=== PATIENT | female | born 1960 | race Caucasian/White ===

== ENCOUNTER 2020-10-25 11:28 | Outpatient (REF) | payer MEDICAID, SELFPAY ==
[2020-10-25 20:44] LABS: Hemoglobin A1C 5.5 % (<5.7)
[2020-10-25 20:47] LABS: ALT 34 U/L (14-59); AST 16 U/L (15-37); Albumin 3.8 g/dL (3.4-5.0); Alkaline Phosphatase 86 U/L (46-116); Anion Gap 8.5 mmol/L (3-11); BUN 13 mg/dL (7-18); Bilirubin, Total 1.2 mg/dL (0.2-1.0); CO2 30.5 mmol/L (21.0-32.0); CREATININE 0.7 mg/dL (0.55-1.02); Calcium 9.1 mg/dL (8.5-10.1); Calculated LDL 111 mg/dL (<100); Chloride 106 mmol/L (98-107); Cholesterol 187 mg/dL (<200); Glucose 88 mg/dL (74-106); HDL Cholesterol 54 mg/dL (40-60); Potassium 4.3 mmol/L (3.5-5.1); Sodium 145 mmol/L (136-145); Total Protein 6.6 g/dL (6.4-8.2); Triglyceride 110 mg/dL (<150)
== END 2020-10-25 11:29 | disposition home or self-care (01) ==
LOC: NCHCN 11:28
PROVIDERS: Visit Provider Family Medicine
DX: R73.03 Prediabetes (principal); R03.0 Elevated blood-pressure reading, without diagnosis of hypertension; E66.3 Overweight
CPT/HCPCS: 80053; 80061; 83036

== ENCOUNTER 2021-10-17 14:55 | Outpatient (REF) | payer MEDICAID, SELFPAY ==
[2021-10-17 17:17] LABS: ALT 35 U/L (14-59); AST 19 U/L (15-37); Albumin 3.8 g/dL (3.4-5.0); Alkaline Phosphatase 90 U/L (46-116); Anion Gap 8.1 mmol/L (3-11); BUN 12 mg/dL (7-18); Bilirubin, Total 1.1 mg/dL (0.2-1.0); CO2 28.9 mmol/L (21.0-32.0); CREATININE 0.6 mg/dL (0.55-1.02); Calcium 8.8 mg/dL (8.5-10.1); Chloride 106 mmol/L (98-107); Glucose 86 mg/dL (74-106); Potassium 4.3 mmol/L (3.5-5.1); Sodium 143 mmol/L (136-145); Total Protein 6.7 g/dL (6.4-8.2)
[2021-10-17 17:19] LABS: Hemoglobin A1C 5.8 % (<5.7)
== END 2021-10-17 14:56 | disposition home or self-care (01) ==
LOC: NCHCN 14:55
PROVIDERS: Visit Provider Family Medicine
DX: E66.3 Overweight (principal); R73.03 Prediabetes
CPT/HCPCS: 80053; 83036

== ENCOUNTER 2022-10-30 13:52 | Outpatient (REF) | payer MEDICAID, SELFPAY ==
[2022-10-30 21:25] LABS: ALT 41 U/L (14-59); AST 24 U/L (15-37); Albumin 3.8 g/dL (3.4-5.0); Alkaline Phosphatase 83 U/L (46-116); Anion Gap 6.2 mmol/L (3-11); BUN 19 mg/dL (7-18); Bilirubin, Total 0.9 mg/dL (0.2-1.0); CO2 28.8 mmol/L (21.0-32.0); CREATININE 0.7 mg/dL (0.55-1.02); Calcium 9.1 mg/dL (8.5-10.1); Calculated LDL 139 mg/dL (<100); Chloride 106 mmol/L (98-107); Cholesterol 222 mg/dL (<200); Estimated GFR 97.72 (mL/min/1.73m2); Glucose 91 mg/dL (74-106); HDL Cholesterol 58 mg/dL (40-60); Potassium 4.2 mmol/L (3.5-5.1); Sodium 141 mmol/L (136-145); Total Protein 7.4 g/dL (6.4-8.2); Triglyceride 125 mg/dL (<150)
[2022-10-30 21:39] LABS: Hemoglobin A1C 5.9 % (<5.7)
== END 2022-10-30 13:53 | disposition home or self-care (01) ==
LOC: NCHCN 13:52
PROVIDERS: Visit Provider Family Medicine
DX: Z00.00 Encounter for general adult medical examination without abnormal findings (principal); R73.03 Prediabetes; E66.3 Overweight
CPT/HCPCS: 80053; 80061; 83036